=== PATIENT | male | born 1995 | race Caucasian/White ===

== ENCOUNTER → 2018-09-04 | Outpatient (REF) ==
[~2018-09-04] MED LIST: NO HOME MEDICATIONS
== END ==
LOC: ZLAB.WCH 13:40
DX: Z01.89 Encounter for other specified special examinations (principal)

== ENCOUNTER 2021-07-19 12:41 | Emergency (ER) | payer OTHER ==
[~2021-07-19] VITALS: Ht 180.3 cm; Wt 96.4 kg
[2021-07-19 12:48] VITALS: TEMP 98.3
[2021-07-19 16:42] VITALS: BP 117/76; PULSE 71
== END 2021-07-19 16:42 | disposition home or self-care (01) ==
LOC: COL.ER 12:41
DX: S93.622A Sprain of tarsometatarsal ligament of left foot, initial encounter (principal); Z28.310 Unvaccinated for COVID-19; W20.8XXA Other cause of strike by thrown, projected or falling object, initial encounter

== ENCOUNTER → 2023-10-04 | Outpatient (CLI) | payer OTHER | LOC: COL.RAD 08:18 | DX: M25.572 Pain in left ankle and joints of left foot (principal); Z98.1 Arthrodesis status ==

== ENCOUNTER → 2023-10-09 | Outpatient (CLI) | payer OTHER | LOC: COL.RAD 08:20 | DX: M25.561 Pain in right knee (principal) ==